=== PATIENT | female | born 1975 | race Caucasian/White ===

== ENCOUNTER 2024-02-09 10:47 | Emergency (ER) | payer OTHER ==
[2024-02-09 11:10] VITALS: BP 103/66; PULSE 72; RESP 16; TEMP 98.4; BMI 23.0
== END 2024-02-09 12:36 | disposition home or self-care (01) ==
LOC: JERFT 10:47
DX: S90.812A Abrasion, left foot, initial encounter (principal); W55.03XA Scratched by cat, initial encounter
CPT/HCPCS: 99283-25